=== PATIENT | female | born 1995 | race Caucasian/White ===

== ENCOUNTER 2021-03-08 15:39 | Emergency (ER) | payer OTHER ==
[2021-03-08 20:46] LABS: BILIRUBIN 1+ mg/dL (NEGATIVE); BLOOD NEGATIVE Ery/uL (NEGATIVE); CLARITY CLEAR (CLEAR); COLOR ORANGE (YELLOW); GLUCOSE (U) 1+ mg/dL (NORMAL); LEUKOCYTES 2+ Leu/uL (NEGATIVE); NITRITE POSITIVE (NEGATIVE); PROTEIN 2+ mg/dL (NEGATIVE); UROBILINOGEN >=8.0 mg/dL (0.2-1.0); pH 6.5 (5.0-9.0)
[2021-03-08 20:53] LABS: URINARY RBC RARE
[2021-03-08 20:54] LABS: BACTERIA 1+
[2021-03-08] MEDS ORDERED: NORCO 5-325 TA1 EACH PO ×2 (21:57→22:01)
[2021-03-08] MEDS ORDERED: DOXYCYCLINE HY100 MG PO ×2 (21:57→22:01)
[2021-03-08] MEDS ORDERED: ZOVIRAX200 MG PO ×2 (21:57→22:01)
[2021-03-12 06:08] LABS: CHLAMYDIA TRACHOMATIS, NAA Negative (Negative); NEISSERIA GONORRHOEAE, NAA Negative (Negative)
== END 2021-03-08 22:39 ==
LOC: FER 15:39
PROVIDERS: Nurse Practitioner Family
DX: A60.04 Herpesviral vulvovaginitis (principal); N39.0 Urinary tract infection, site not specified
CPT/HCPCS: 81001; 87088; 87210; 87491; 87591; 90715; 99283; J0696; Q0162